=== PATIENT | female | born 1990 | race Caucasian/White ===

== ENCOUNTER → 2016-11-15 | Outpatient (CLI) | payer BC ==
[~2016-11-15] MED LIST: BAYER ASPIRIN R81 MG PO; FLONASE 50 MCG16 GM; PANTOPRAZOLE40 MG PO; SALMETEROL-F28 PUFF2 IN; TAMIFLU 75MG CA75 MG PO; YAZ 28 3 MG-0.01 TAB PO; ZANTAC 150150 MG PO; ZOLOFT 50MG TAB50 MG PO; ZYRTEC 10MG TAB10 MG PO; ZYRTEC ALLERGY10 MG PO
[2016-11-15 18:01] LABS: HEMOGLOBIN 12.5 g/dL (12.2-16.2); LYMPH # 3.2 K/mm3 (0.7-4.5)
== END ==
LOC: LAB 17:46
PROVIDERS: Internal Medicine
DX: B35.1 Tinea unguium (principal); Z79.899 Other long term (current) drug therapy

== ENCOUNTER 2017-01-20 15:37 | Emergency (ER) | payer BC ==
[~2017-01-20] VITALS: Ht 165.1 cm; Wt 72.6 kg
--- OUTSIDE RECORDS SUMMARY | 2017-01-20 15:45 | External Medical Summary Rpt | CCD ---
Author Author DANI Address Unknown Phone [email or web address] Purpose Continuity of Care Document - 09-13-2010 through 2016
--- OUTSIDE RECORDS SUMMARY | 2017-01-20 15:45 | External Medical Summary Rpt | CCD ---
Demographics Preferred Language Korean Marital Status Unknown Baptist Affiliation Unknown Race Unknown Ethnic Group Unknown Author Author , DANI CONRAD Address Unknown Phone Immunization Unable to retrieve immunization data due to connection failure with Immunization Registry. Please try again later.
--- OUTSIDE RECORDS SUMMARY | 2017-01-20 15:45 | External Medical Summary Rpt | CCD ---
Author Author DANI Address Unknown Phone Purpose Continuity of Care Document - 09-13-2010 through 2016
--- OUTSIDE RECORDS SUMMARY | 2017-01-20 15:45 | External Medical Summary Rpt | CCD ---
Author Author [employer] Organization [employer] Address Unknown Phone Unavailable Purpose Continuity of Care Document - through 2016
--- OUTSIDE RECORDS SUMMARY | 2017-01-20 15:45 | External Medical Summary Rpt | CCD ---
Demographics Preferred Language Slovenian Marital Status Unknown Orthodoxy Affiliation Unknown Race Unknown Ethnic Group Unknown Author Author , DANI CONRAD Address Unknown Phone Immunization Unable to retrieve immunization data due to connection failure with Immunization Registry. Please try again later.
--- OUTSIDE RECORDS SUMMARY | 2017-01-20 15:46 | External Medical Summary Rpt ---
Author Author [facility] Chavarria, [employer] Address Unknown Phone Unavailable Payers Section Payer Plan Name Group ID Member ID Coverage Coverage Start End Date Date OCCUPATIO OHEM^ [id number] No No NAL 'S informati informati MEDICINE DAUGHTERS on in on in source source MEDICAL^P data data LANID BLUE [id number] No No CROSS 021 informati informati BLUE [facility]^PLAN on in on in SHIELD ID source source data data Results Alanine aminotransferase [Enzymatic activity/volume] in Serum or Plasma Observa Value Referen Units Interpr Notes Date tion ce etation Range Alanine 12 - 78 U/L Normal No Nov 15 aminotran informati 2016 5:47 sferase on in PM [Enzymati source c data activity/ volume] in Serum or Plasma CBC W Auto Differential panel in Blood Observa Value Referen Units Interpr Notes Date tion ce etation Range Basophils 0 - 0.2 K/MM3 Normal No Nov 15 informati 2016 5:47 [#/volume on in PM ] in source Blood by data Automated count Basophils 0.1 - 2.0 % Normal No Nov 15 informati 2016 5:47 leukocyte on in PM s in source Blood by data Automated count Eosinophi 0.0 - 0.4 K/mm3 Normal No Nov 15 ls informati 2016 5:47 [#/volume on in PM ] in source Blood by data Automated count Eosinophi 0.1 - % Normal No Nov 15 ls/100 12.0 informati 2016 5:47 leukocyte on in PM s in source Blood by data Automated count Granulocy 1.8 - 7.8 K/mm3 Normal No Nov 15 pk informati 2016 5:47 [#/volume on in PM ] in source Blood by data Automated count Granulocy 37.0 - % Normal No Nov 15 pk/100 80.0 informati 2016 5:47 leukocyte on in PM s in source Blood by data Automated count Hematocri 37.0 - % Low No Aug 18 t [Volume 47.0 informati 2017 5:47 on in PM Fraction] source of Blood data Hemoglobi 12.2 - g/dL Normal No Nov 15 n 16.2 informati 2017 5:47 [Mass/vol on in PM ume] in source Blood data Lymphocyt 0.7 - 4.5 K/mm3 Normal No Nov 15 es informati 2017 5:47 [#/volume on in PM ] in source Unspecifi data ed specimen by Automated count Lymphocyt 10 - 50.0 % Normal No Nov 15 es informati 2016 5:47 [#/volume on in PM ] in source Unspecifi data ed specimen by Automated count Erythrocy 27 - 31.2 pg Normal No Nov 15 te mean informati 2017 5:47 corpuscul on in PM ar source hemoglobi data n [Entitic mass] Erythrocy 31.8 - g/dl Normal No Nov 15 te mean 35.4 informati 2016 5:47 corpuscul on in PM ar source hemoglobi data n concentra tion [Mass/vol ume] by Automated count Erythrocy 82.2 - fl Normal No Nov 15 te mean 97.8 informati 2016 5:47 corpuscul on in PM ar volume source [Entitic data volume] by Automated count Monocytes 0.1 - 1.0 K/mm3 Normal No Nov 15 informati 2017 5:47 [#/volume on in PM ] in source Blood by data Automated count Monocytes 1.7 - 9.3 % Normal No Oct 18 /100 informati 2017 5:47 leukocyte on in PM s in source Blood by data Automated count Platelet 7.4 - fl Low No Nov 15 mean 10.4 informati 2017 5:47 volume on in PM [Entitic source volume] data in Blood by Automated count Platelets 142 - 424 K/mm3 Normal No Nov 15 informati 2017 5:47 [#/volume on in PM ] in source Blood data Erythrocy 4.2 - 5.4 M/mm3 Normal No Oct 18 pk informati 2017 5:47 [#/volume on in PM ] in source Amniotic data fluid Erythrocy 11.5 - % Normal No Nov 15 te 17.5 informati 2016 5:47 distribut on in PM ion width source [Entitic data volume] by Automated count Leukocyte 4.8 - K/MM3 Normal No Nov 15 s 10.8 informati 2016 5:47 [#/volume on in PM ] in source Blood data Comprehensive metabolic 2000 panel in Serum or Plasma Observa Value Referen Units Interpr Notes Date tion ce etation Range Albumin/G 1.1 - 1.8 No Low No Oct 04 lobulin informati informati 2016 [Mass on in on in ratio] in source source Serum or data data Plasma Albumin 3.4 - 5.0 gm/dL Normal No Oct 04 [Mass/vol informati 2016 ume] in on in Serum or source Plasma data Alkaline 46 - 116 U/L Normal No Oct 04 phosphata informati 2016 se on in [Enzymati source c data activity/ volume] in Serum or Plasma Bilirubin 0.2 - 1.0 mg/dL Normal No Oct 04 .total informati 2016 [Mass/vol on in ume] in source Serum or data Plasma Urea 7 - 18 mg/dL Normal No Oct 04 nitrogen informati 2016 [Mass/vol on in ume] in source Serum or data Plasma Calcium 8.5 - mg/dL Normal No Oct 04 [Mass/vol 10.1 informati 2016 ume] in on in Serum or source Plasma data Chloride 98 - 107 mmoL/L Normal No Oct 04 [Moles/vo informati 2017 lume] in on in Serum or source Plasma data Carbon 21.0 - mmoL/L Normal No Oct 04 dioxide, 32.0 informati 2016 total on in [Moles/vo source lume] in data Serum or Plasma Creatinin 0.55 - mg/dL Normal No Oct 04 e 1.02 informati 2016 [Mass/vol on in ume] in source Serum or data Plasma Estimated 59- ML/MIN No REFERENCE Oct 04 informati RANGE: 2017 glomerula on in >60 r source ML/MIN/1. filtratio data 73 SQUARE n rate METERSIf (GF this patient is -A merican, then multiply theresult by 1.210. Globulin 1.3 - 3.2 gm/dL High No Oct 04 [Mass/vol informati 2016 ume] in on in Serum source data Glucose 74 - 106 mg/dL Normal No Oct 04 [Mass/vol informati 2016 ume] in on in Serum or source Plasma data Potassium 3.5 - 5.1 mmoL/L Normal No Oct 04 informati 2016 [Moles/vo on in lume] in source Serum or data Plasma Sodium 136 - 145 mmoL/L Normal No Oct 04 [Moles/vo 2016 lume] in on in Serum or source Plasma data Aspartate 15 - 37 U/L Normal No Oct 042016 aminotran on in sferase source [Enzymati data c activity/ volume] in Serum or Plasma Alanine 12 - 78 U/L Normal No Oct 04 aminotran 2016 sferase on in [Enzymati source c data activity/ volume] in Serum or Plasma Protein 6.4 - 8.2 gm/dL Normal No Oct 04 [Mass/vol 2016 ume] in on in Serum or source Plasma data CBC W Auto Differential panel in Blood Observa Value Referen Units Interpr Notes Date tion ce etation Range Basophils 0 - 0.2 K/MM3 Normal No Oct 042016 [#/volume on in ] in source Blood by data Automated count Basophils 0.1 - 2.0 % Normal No Oct 04 /2016 leukocyte on in s in source Blood by data Automated count Eosinophi 0.0 - 0.4 K/mm3 Normal No Oct 04 ls 2016 [#/volume on in ] in source Blood by data Automated count Eosinophi 0.1 - % Normal No Oct 04 ls/100 12.0 2016 leukocyte on in s in source Blood by data Automated count Granulocy 1.8 - 7.8 K/mm3 Normal No Oct 04 pk 2016 [#/volume on in ] in source Blood by data Automated count Granulocy 37.0 - % Normal No Oct 04 pk/100 80.0 2016 leukocyte on in s in source Blood by data Automated count Hematocri 37.0 - % Normal No Oct 04 t [Volume 47.0 2016 on in Fraction] source of Blood data Hemoglobi 12.2 - g/dL Normal No Oct 04 n 16.2 2016 [Mass/vol on in ume] in source Blood data Lymphocyt 0.7 - 4.5 K/mm3 Normal No Oct 04 es 2016 [#/volume on in ] in source Unspecifi data ed specimen by Automated count Lymphocyt 10 - 50.0 % Normal No Oct 04 es 2016 [#/volume on in ] in source Unspecifi data ed specimen by Automated count Erythrocy 27 - 31.2 pg Normal No Oct 04 te mean 2016 corpuscul on in ar source hemoglobi data n [Entitic mass] Erythrocy 31.8 - g/dl Normal No Oct 04 te mean 35.4 inform2016 corpuscul on in ar source hemoglobi data n concentra tion [Mass/vol ume] by Automated count Erythrocy 82.2 - fl Normal No Oct 04 te mean 97.8 2016 corpuscul on in ar volume source [Entitic data volume] by Automated count Monocytes 0.1 - 1.0 K/mm3 Normal No Oct 04 inform2016 [#/volume on in ] in source Blood by data Automated count Monocytes 1.7 - 9.3 % Normal No Oct 04 /100 informati 2016 leukocyte on in s in source Blood by data Automated count Platelet 7.4 - fl Normal No Oct 04 mean 10.4 ati 2016 volume on in [Entitic source volume] data in Blood by Automated count Platelets 142 - 424 K/mm3 Normal No Oct 042016 [#/volume on in ] in source Blood data Erythrocy 4.2 - 5.4 M/mm3 Normal No Oct 04 pk informati 2016 [#/volume on in ] in source Amniotic data fluid Erythrocy 11.5 - % Normal No Oct 04 te 17.5 informati 2016 distribut on in ion width source [Entitic data volume] by Automated count Leukocyte 4.8 - K/MM3 Normal No Oct 04 s 10.8 ati 2016 [#/volume on in ] in source Blood data RUBELLA IGG, QL, S Observa Value Referen Units Interpr Notes Date tion ce etation Range Rubella POSITIV No No No Negativ Sep 14 virus E informa informa informa e: 2010 IgG Ab tion in tion in tion in Indicat 12:46 [Units/ source source source es PM volume] data data data non-imm in unity.E Serum quivoca l: Recomme nd follow- up testing in 10-14 days.Po sitive: Indicat es prior exposur e or a convale scent stage of theinfe ction. RUBEOLA IGG, QL, S Observa Value Referen Units Interpr Notes Date tion ce etation Range RUBEOLA POSITIV No No No Negativ Sep 14 IGG, E informa informa informa e: 2010 QL, S tion in tion in tion in Indicat 12:19 source source source es PM data data data non-imm unity.E quivoca l: Recomme nd follow- up testing in 10-14 days.Po sitive: Indicat es prior exposur e or a convale scent stage of theinfe ction. MUMPS IGG, QL, S Observa Value Referen Units Interpr Notes Date tion ce etation Range MUMPS POSITIV No No No Negativ Sep 14 IGG, E informa informa informa e: 2010 QL, S tion in tion in tion in Indicat 12:19 source source source es PM data data data non-imm unity.E quivoca l: Recomme nd follow- up testing in 10-14 days.Po sitive: Indicat es prior exposur e or a convale scent stage of theinfe ction. HEP B SURFACE AB Observa Value Referen Units Interpr Notes Date tion ce etation Range Hepatit NEGATIV No No No No Sep 14 is B E informa informa informa informa 2010 virus tion in tion in tion in tion in 9:46 AM surface source source source source Ab data data data data [Units/ volume] in Serum by Immunoa ssay
--- OUTSIDE RECORDS SUMMARY | 2017-01-20 15:46 | External Medical Summary Rpt ---
Author Author [facility] Chavarria, [employer] Address Unknown Phone Unavailable Payers Section Payer Plan Name Group ID Member ID Coverage Coverage Start End Date Date OCCUPATIO OHEM^ [id number] No No NAL 'S informati informati MEDICINE DAUGHTERS on in on in source source MEDICAL^P data data LANID BLUE [id number] No No CROSS 021 informati informati BLUE [...]
[2017-01-20] MEDS ORDERED: OMNICEF 300 MG300 MG PO (16:39)
[2017-01-20] MEDS ORDERED: MEDROL 4MG. DOSE4 MG PO (16:40)
--- NOTE | 2017-01-20 16:40 | Urgent Treatment Center Report ---
History of Present Issue Date/Time Seen by Provider 01/20/17 6142 Visit Reason Pt arrived:Walked Presenting Problem:SORE THROAT AND BODY ACHES FOR 3 DAYS Location if Accident: Onset of symptoms date/time:/ or onset unknown for:MEDICAL HX UNKNOWN Have you (or family members/close friends) recently traveled outside the [place]? N If Yes, where/when: Have you had exposure to infectious disease within the past month? TB? Other? Specify: Patient states that she has been having sorethroat, chills feverish and body aches that has continued to get worse over the last 3-4 days States that her throat has continued to get more sore and has pain when she swallows. 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 No Angina: No IN: No Hypertension? No Hyperlipidemia? No CHF? No DVT? No PE? No COPD? No Asthma? Yes Anemia? No GERD? No Gastric ulcers? No GI Bleed? No Hernia? No Thyroid Problems? No Hypothyroidism? No CVA? No Seizures? No Diabetes? No Renal Insuffiency? No UTI? No Stones? No BPH? No GB Disease: No Nephritic Syndrome? No Asplenia? No Hepatitis? No Sickle Cell Disease? No Arthritis? No Migraines? No Cataracts? No Glaucoma? No MRSA? No HIV? No TB? No Anxiety? Yes Depression? No Cancer? No More? No Immunization HX DT/Tetanus 1-4 YRS Flu THISFLUSEA Pneumonia REFUSES Surgical Hx Previous Surgery?Y ORAL SURGERY Family History Family HX Diabetes No CAD Yes Hypertension Yes Hyperlipidemia Yes Cancer Yes TB No Social History Smoking Hx Smoker: Never Smoker Tobacco: No Alcohol Alcohol: No Review of Systems All Other Systems Reviewed and Negative Constitutional chills, fever ENT throat pain, throat swelling. Respiratory denies shortness of breath, denies wheezing Gastrointestinal denies abdominal pain, denies diarrhea, denies nausea, denies vomiting Physical Exam Vital Signs Vital Signs Date Time Temp Pulse Resp B/P Pulse O2 O2 Flow FiO2 Ox Delivery Rate 01/20 1554 98.8 77 20 122/82 100 General Appearance normal appearance, WD/WN, no apparent distress Ear, Nose, Throat tonsillar swelling, Throat red, irritated drainage noted, Tenderness noted in maxillary sinuses Respiratory Status Yes: trachea midline, chest symmetrical, non tender chest. No: respiratory distress. Cardiovascular normal exam, regular rate/rhythm, no peripheral edema Neurologic alert, normal exam, oriented x 3 Medical Decision Making LABS/Meds/Orders Pt receiving controlled substance in ED? No Results/Orders Laboratory Tests 01/20/17 1553: Group A Strep Screen NOT DETECTED Orders Procedure Date/time Status [facility] STREP SCREEN 01/20 1553 Complete Departure Departure Time of Disposition 1637 Disposition DC Home or Self Care(routine) Clinical Impression Primary Impression: Upper respiratory infection Qualifiers: URI type: unspecified URI Qualified Code: J06.9 - Acute upper respiratory infection, unspecified Condition STABLE Referrals Bao JIMENEZ,Barry Jenkins. (Family): 3 Days-Call Office if no improvment in symptoms Patient Instructions Sore Throat Additional Instructions * Monitor Temp. Tylenol and/or Ibuprofen as needed. ER if fever is no less than 101 despite alternating Tylenol and Ibuprofen * Encourage fluids, water, Gatorade, powerade, pedialyte if /toddler/or child * Warm salt water gargles for throat irritation *Warm fluids *Sore throat lozenges *Sleep elevated *humidifier or vaporizer Lots of rest Increase fluids, water, Gatorade, powerade *Your throat swab was sent to lab for culture. Those results area typically sent to your primary care physician. Be sure to follow up in 2-3 days if no improvement so they can review those results and treat if necessary If you dont have primary care I recommend you get one, but in the mean time you will have to return to a walk in clinic Follow up IMMEDIATELY for new or worsening of symptoms OR no noticeable improvement over the next 48-72 hours. 911 immediately for any life threatening symptoms such as chest pain or difficulty breathing Discharge Counseling Counseled pt/family regarding diagnosis, medications/RX, home care, follow up needs Prescriptions Current Visit Scripts CEFDINIR (Cefdinir) 300 MG PO BID #20 CAP Methylprednisolone (Medrol Dose Martell) 4 MG PO UD #1 MARTELL TAKE DIRECTED ON PACKAGING at 1640
[2017-01-20 16:41] VITALS: BP 122/82
== END 2017-01-20 16:43 | disposition home or self-care (01) ==
LOC: UTC 15:37
DX: J06.9 Acute upper respiratory infection, unspecified (principal); Z88.0 Allergy status to penicillin